=== PATIENT | female | born 1990 | race Asian ===

== ENCOUNTER → 2018-11-18 | Outpatient (REF) | LOC: ZLAB.WCH 15:06 | DX: Z01.89 Encounter for other specified special examinations (principal) ==

== ENCOUNTER 2019-07-05 09:08 | Outpatient (CLI) | payer BC ==
[~2019-07-05] VITALS: Ht 154.9 cm; Wt 71.8 kg
--- NOTE | 2019-07-05 09:20 | NUR ---
G1 at 37.3 weeks gestation to LDR4 with c/o falling on the ice last night. Patient states that she fell around 1900 last night when she was getting out of her car, she states the she landed on her left hip. Patient reports that she is feeling baby move but that he is less active than usual. She denies leaking of fluid, bleeding, or contractions. EFMs explained and applied. FHR 130 bpm and reactive. No CTX per toco. VSS. Assessment completed. Plan of care reviewed. Call light within reach.
[2019-07-05 09:27] VITALS: BP 104/53; PULSE 71; TEMP 97.4
[2019-07-05] MEDS ORDERED: PRENATAL TABLET PO (09:33)
--- NOTE | 2019-07-05 10:20 | NUR ---
Discharge instructions reviewed, labor precautions discussed, patient discharged home.
== END 2019-07-05 10:25 | disposition home or self-care (01) ==
LOC: LDRO 09:08 → LDR 09:45 → LDRO 10:25
DX: Z34.93 Encounter for supervision of normal pregnancy, unspecified, third trimester (principal); Z3A.37 37 weeks gestation of pregnancy
CPT/HCPCS: OP

== ENCOUNTER 2019-07-18 05:34 | Inpatient (IN) | payer BC ==
[~2019-07-18] VITALS: Ht 154.9 cm; Wt 73.2 kg
[2019-07-18] VITALS (66 sets, daily range): BP systolic 81–1323; BP diastolic 44–83; PULSE 61–96; TEMP 97.4–98.5
[~2019-07-18 05:34] MED LIST: PRENATAL TABLET PO
--- NOTE | 2019-07-18 05:50 | NUR ---
0550 HERE WITH SPOUSE FOR SROM CHECK- CLOSED THICK POSTERIOR . VAGINA MOIST WITH MUCOUS- NITRAZINE INDETERMINATE FOR SROM. EFM ON. PLAN OF CARE DISCUSSED PER Tenzin JOHNSON
--- NOTE | 2019-07-18 07:00 | NUR ---
Physician notified of positive amniosure. Bedside US performed by provider. Orders for admission and pitocin administration per Dr. Grewal. Consents signed. IV started. Labs obtained. Pt updated on POC. Safety reviewed. No questions or concerns at this time. Bed locked in low position. Call light within reach.
[2019-07-18 08:06] LABS: BASO % 0.3 % (0.0-2.0); EOS # 0.1 (0.0-0.7); EOS % 1.1 % (0-4.0); GRAN # 6.2 (1.4-6.5); GRAN % 70.4 % (42.2-75.2); HEMOGLOBIN 11.4 g/dl (12.5-16.0); LYMPH # 1.7 (1.2-3.4); MEAN CELL VOLUME 90 fl (80.0-100.0); MEAN CORPUSCULAR HEMOGLOBIN 30 pg (27.0-31.0); MEAN CORPUSCULAR HGB CONC 33 g/dl (33.0-37.0); MEAN PLATELET VOLUME 11.2 fl (7.4-10.4); MONO # 0.8 (0.1-0.6); MONO % 8.9 % (1.7-9.3); PLATELET COUNT 168 K/mm3 (130-400); RED BLOOD COUNT 3.86 M/mm3 (4.10-5.30); REDCELL DISTRIBUTION WIDTH-CV 13.5 % (11.5-14.5)
[2019-07-18 08:07] LABS: HEMATOCRIT 34.9 % (37.0-47.0)
--- NOTE | 2019-07-18 08:52 | NUR ---
Pt sitting upright for epidural placement. Difficulty tracing FHR due to maternal position. RN at bedside adjusting monitors. FHR audible.
--- NOTE | 2019-07-18 21:50 | NUR ---
2147- DR. GRULLON IN ROOM TO EVALUATE. 2148- AROM OF FOREBAG, CLEAR FLUID, SVE OF 8/-1.
--- NOTE | 2019-07-18 22:50 | NUR ---
223- DR. GRULLON IN ROOM TO EVALUATE, SVE PERFORMED, /-1. 2234- DR. GRULLON DISCUSSES CONCERNS ABOUT ARREST OF DILATION AND SWELLING OF THE CERVIX. PT VERBALIZES UNDERSTANDING. C/S RECOMMENDED BY DR. GRULLON, PT AGREES WITH THIS PLAN OF CARE. 2236- D. HARLEEN, MEHRDAD, NURSERY STAFF, AND BRICK BURNER NOTIFIED OF C/S. 2243- ABDOMINAL SCRUB PERFORMED 2249- MONITORING DC'D, PT TO OR FOR NON EMERGENT C/S FOR ARREST OF DILITATION.
--- NOTE | 2019-07-18 23:48 | NUR ---
IV DC'D DURING TRANSFER TO SURGICAL BED IN THE OR.
[2019-07-19] VITALS (17 sets, daily range): BP systolic 103–131; BP diastolic 59–84; PULSE 68–100; TEMP 97.9–98.3
--- NOTE | 2019-07-19 09:12 | NUR ---
Initial visit; Patient thanked [employer] for offering congratulations for the of her son and thanking her for choosing [facility].
--- NOTE | 2019-07-19 14:36 | NUR ---
AMPARO vallejo responded to a school social worker consult for the patient due to limited support. AMPARO vallejo met with the patient. The patient reports she does have a few friends in the area that are very supportive. The patient's nurse reports the boyfriend has been to visit the patient. The patient reports she has a car seat and other baby supplies. The patient reports she will have time off of work. AMPARO vallejo provided [facility] Resource Guide for the patient. The patient did not have any questions or concerns. AMPARO vallejo collaborated the above information with the patient's nurse.
[2019-07-20 08:10] VITALS: BP 107/71; PULSE 82; TEMP 96.5
[2019-07-20] MEDS ORDERED: PERCOCET 325 MG1 TA2 PO (13:44)
[2019-07-20] MEDS ORDERED: IBU800 M1 PO (13:45)
--- NOTE | 2019-07-20 17:00 | NUR ---
1500 MOM REPORTS PAIN STILL BEING THERE. RN EDUCATED ON NORMAL POST OP PAIN. THIS RN ALSO EDUCATED PATIENT ON "OVER DOING IT TODAY". PATIENT VERBALIZED UNDERSTANDING. PATIENT ASKED RN TO BRING DORIS TO NURSERY AROUND 1530. RN TOLD PATIENT THAT SHE NEEDS TO GET SOME REST. RN TOLD PATIENT THAT SHE WOULD BE IN TO CHECK ON PATIENT AROUND 1700. PATIENT VERBALIZED UNDERSTANDING. WILL CONTINUE TO MONITOR.
[2019-07-20 21:10] VITALS: BP 110/68; PULSE 89; TEMP 97.4
[2019-07-21 07:35] VITALS: BP 105/60; PULSE 82; TEMP 98.1
[2019-07-21 12:25] VITALS: BP 115/67; PULSE 77; TEMP 97.8
[2019-07-21] MEDS ORDERED: HYDROCORTISONE30 G3 TP (13:17)
== END 2019-07-21 14:45 | disposition home or self-care (01) | DRG 788 ==
LOC: LDRO 05:34 → LDR 06:32 → OB 07-19 00:30
PROVIDERS: Obstetrics & Gynecology; ADMIT Obstetrics & Gynecology
PROC: 10D00Z1 Extraction of Products of Conception, Low, Open Approach (ICD-10-PCS; principal; 2019-07-19)
DX: O62.1 Secondary uterine inertia (principal); Z3A.39 39 weeks gestation of pregnancy; Z37.0 Single live birth
CPT/HCPCS: J0690; J1885; J2175; J2370; J2400; J2405; J2590; J2795; J3010; J7120